=== PATIENT | male | born 1940 | race Caucasian/White ===

== ENCOUNTER → 2017-11-29 | Outpatient (CLI) | payer MEDICARE, BC ==
[~2017-11-29] MED LIST: OMEP-125 PO; OMEP-218 PO; PRAV40TA78 PO; RANI-366 PO; SIMV-44 PO; VERA240T12 PO; VERA240T87 PO
[2017-11-29 09:55] LABS: PLATELET COUNT, AUTOMATED 254 K/uL (150-450)
== END ==
LOC: LAB 09:43
PROVIDERS: ATTEND Internal Medicine
DX: E78.49 Other hyperlipidemia (principal); K21.9 Gastro-esophageal reflux disease without esophagitis; I49.1 Atrial premature depolarization
CPT/HCPCS: 36415; 81001; 84443; 85025; G0103; 82040; 82247; 82310; 82374; 82435; 82465; 82565; 82947; 83718; 84075; 84132; 84153; 84155; 84295; 84450; 84460; 84478; 84520